=== PATIENT | female | born 1995 | race Two or more races ===

== ENCOUNTER → 2025-01-18 | Outpatient (CLI) | payer OTHER ==
[2025-01-18 18:26] LABS: HEPATITIS C VIRUS ABY INDEX 0.11 INDEX (<0.8)
== END ==
LOC: M PLALAB 14:48
PROVIDERS: ATTEND Advanced Practice Midwife
DX: Z34.82 Encounter for supervision of other normal pregnancy, second trimester (principal)

== ENCOUNTER → 2025-03-29 | Outpatient (CLI) | payer OTHER ==
[2025-03-29 11:13] LABS: PLATELET COUNT, AUTOMATED 196 10^3/uL (150-450)
[2025-03-29 12:10] LABS: GLUCOSE CHALLENGE TEST 1 HOUR 136 MG/DL (LESS THAN 140)
[2025-03-29 12:30] LABS: Trichomonas vaginalis (AMP) NOT DETECTED (NEGATIVE)
[2025-03-29 12:48] LABS: HIV 1&2 SCREEN NEGATIVE (NEGATIVE)
[2025-03-29 12:54] LABS: GC DNA AMPLIFICATION NEGATIVE (NEGATIVE)
[2025-03-29 12:55] LABS: HEPATITIS C VIRUS ABY INDEX < 0.02 INDEX (<0.8)
== END ==
LOC: M PLALAB 07:38
PROVIDERS: ATTEND Nurse Practitioner Family
DX: Z34.80 Encounter for supervision of other normal pregnancy, unspecified trimester (principal)

== ENCOUNTER → 2025-04-11 | Outpatient (CLI) | payer OTHER | LOC: M LAB 07:50 | PROVIDERS: ATTEND Obstetrics & Gynecology | DX: Z34.80 Encounter for supervision of other normal pregnancy, unspecified trimester (principal) ==

== ENCOUNTER → 2025-04-19 | Outpatient (CLI) | payer OTHER | LOC: M WHC 10:35 | PROVIDERS: ATTEND Advanced Practice Midwife | DX: O09.899 Supervision of other high risk pregnancies, unspecified trimester (principal); Z3A.33 33 weeks gestation of pregnancy ==

== ENCOUNTER → 2025-05-11 | Outpatient (REF) | payer OTHER | LOC: M PLALAB 15:15 | PROVIDERS: ATTEND Specialist | DX: Z34.93 Encounter for supervision of normal pregnancy, unspecified, third trimester (principal); Z3A.36 36 weeks gestation of pregnancy ==

== ENCOUNTER → 2025-05-15 | Outpatient (CLI) | payer OTHER | LOC: M WHC 10:14 | PROVIDERS: ATTEND Advanced Practice Midwife | DX: O09.893 Supervision of other high risk pregnancies, third trimester (principal); Z3A.37 37 weeks gestation of pregnancy ==

== ENCOUNTER 2025-06-02 07:28 | Inpatient (IN) | payer OTHER ==
[~2025-06-02] VITALS: Ht 165.1 cm; Wt 89.1 kg
[2025-06-02] VITALS (13 sets, daily range): BP systolic 104–146; BP diastolic 56–79
[2025-06-02] MEDS ORDERED: OXYTOCIN INJ 10UNITS/ML 1ML VIAL IV PRN (08:05)
[2025-06-02] MEDS ORDERED: TRANEXAMIC ACID INJection 1,000 MG in NS 100 ML IV PRN (08:05)
[2025-06-02] MEDS ORDERED: OXYTOCIN DRIP 30 UNITS in IV 1 EA IV PRN ×3 (08:05)
[2025-06-02] MEDS ORDERED: OXYTOCIN INJ 10UNITS/ML 1ML VIAL IM PRN (08:05)
[2025-06-02] MEDS ORDERED: PRENTAB9 PO (08:05)
[2025-06-02] MEDS ORDERED: CARBOPROST TROMETHAMINE 250 MCG/ML AMP IM PRN (08:05)
[2025-06-02] MEDS ORDERED: LIDOCAINE 1% MDV 20 ML VIAL INFIL PRN (08:05)
[2025-06-02] MEDS ORDERED: METHYLERGONOVINE MALEATE 0.2 MG/ML 1 ML VIAL IM PRN (08:05)
[2025-06-02 08:24] LABS: PLATELET COUNT, AUTOMATED 185 10^3/uL (150-450)
[2025-06-02] MEDS: miSOPROStol 50 MCG 1/2 TABLET PO PRN (08:31)
[2025-06-02 09:18] LABS: HIV 1&2 SCREEN NEGATIVE (NEGATIVE)
[2025-06-02] MEDS: LR 1,000 ML IV SCH (16:05)
[2025-06-03] VITALS (51 sets, daily range): BP systolic 92–137; BP diastolic 51–91; O2SAT 95
[2025-06-03] MEDS ORDERED: LR 1,000 ML IV SCH (01:20)
[2025-06-03] MEDS: OXYTOCIN DRIP 30 UNITS in IV 1 EA IV SCH (02:58)
[2025-06-03] MEDS: PRENATAL VITAMINS CHEWABLE TABLET PO SCH (09:00)
[2025-06-03] MEDS: ONDANSETRON 4MG 2ML VIAL IV ONE (10:05)
[2025-06-03] MEDS ORDERED: EPIDURAL/PCA KEYS XX PRN (10:30)
[2025-06-03] MEDS ORDERED: diphenhydrAMINE 50 MG/ML VIAL IV PRN (10:30)
[2025-06-03] MEDS ORDERED: LR 500 ML IV PRN (10:30)
[2025-06-03] MEDS ORDERED: ONDANSETRON 4MG 2ML VIAL IV PRN (10:30)
[2025-06-03] MEDS ORDERED: NALOXONE INJ 0.4 MG/1 ML VIAL IV PRN (10:30)
[2025-06-03] MEDS: LACTATED RINGER'S 1000 ML IV STA (10:58)
[2025-06-03] MEDS: FENTANYL/ROPIVACAINE/NACL BAG 100 ML EPIDURAL SCH (10:58)
[2025-06-03] MEDS ORDERED: METHYLERGONOVINE MALEATE 0.2 MG TAB PO PRN (12:50)
[2025-06-03] MEDS ORDERED: MOM 30 ML SUSPENSION UDC PO PRN (12:50)
[2025-06-03] MEDS ORDERED: ANUSOL HC CREAM 30 GM TOP PRN (12:50)
[2025-06-03] MEDS: DOCUSATE SODIUM 100 MG CAPSULE PO PRN (18:12)
[2025-06-03] MEDS: ACETAMINOPHEN 500 MG TAB PO PRN (18:13)
[2025-06-03] MEDS: IBUPROFEN 800 MG TAB PO PRN (20:12)
[2025-06-04 06:00] VITALS: BP 105/56; O2SAT 100
[2025-06-04] MEDS: DIBUCAINE 1% OINTMENT 30 GM TOP PRN (08:17)
[2025-06-04] MEDS ORDERED: IBUP80TA PO (11:45)
[2025-06-04] MEDS ORDERED: ACET-683 PO (11:45)
[2025-06-04] MEDS: FLUZONE VACCINE TRIVALENT PF(25-26) 0.5ML SYRINGE IM.IMMUN ONE (11:55)
[2025-06-05] MEDS ORDERED: MEASLES,MUMPS,RUBELLA VACCINE INJ (MMR-II) SC.IMMUN ONE (09:00)
== END 2025-06-04 13:23 | disposition home or self-care (01) | DRG 807 ==
LOC: M LDI 07:28 → M OBS 06-03 14:44
PROVIDERS: ADMIT Obstetrics & Gynecology; ATTEND Obstetrics & Gynecology
PROC: 3E097GC Introduction of Other Therapeutic Substance into Nose, Via Natural or Artificial Opening (ICD-10-PCS; 2025-06-02)
PROC: 3E033VJ Introduction of Other Hormone into Peripheral Vein, Percutaneous Approach (ICD-10-PCS; 2025-06-02)
PROC: 10E0XZZ Delivery of Products of Conception, External Approach (ICD-10-PCS; principal; 2025-06-03)
PROC: 10907ZC Drainage of Amniotic Fluid, Therapeutic from Products of Conception, Via Natural or Artificial Opening (ICD-10-PCS; 2025-06-03)
DX: O24.429 Gestational diabetes mellitus in childbirth, unspecified control (principal); Z37.0 Single live birth; Z3A.39 39 weeks gestation of pregnancy; O36.0990 Maternal care for other rhesus isoimmunization, unspecified trimester, not applicable or unspecified